=== PATIENT | male | born 1960 | race Caucasian/White ===

== ENCOUNTER → 2020-04-20 | Outpatient (CLI) | payer MEDICARE ==
[~2020-04-20] MED LIST: AMLODIPINE BES2.5 MG PO; ASPIRIN CHEWABL81 MG PO; ATORVASTATIN CA80 MG PO; CATAPRES 0.1MG0.1 MG PO; CILOSTAZOL50 MG PO; DITROPAN XL10 MG PO; FLOMAX 0.4 MG0.4 MG PO; GABAPENTIN800 MG PO; HUMALOG100 UNIT/3 SQ; HYDROCODON-ACE1 EAC2 PO; HYGROTON TAB 2525 MG PO; IMDUR ER TAB 3030 MG PO; INVANZ 1 GM VIAL1 GM IV; ISOSORBIDE MONO30 MG PO; KEFLEX CAP 500500 MG PO; LEVOFLOXACIN750 MG PO; LIDOCAINE PLUS120 GM TOP; LINZESS145 MCG PO; LISINOPRIL10 MG PO; NOVOLOG 10100 UNITS1 INJ; OXYCONTIN10 MG PO; POTASSIUM CHLO10 ME2 PO; PROBIOTIC1 EACH PO; PROSCAR 5 MG TAB5 MG PO; PROTONIX 20 MG20 MG PO; TIZANIDINE HCL4 MG PO; TOPROL XL25 MG PO; TRAZODONE HCL150 MG PO; TRULICITY1.5 MG/0.5 SQ; URECHOLINE50 MG PO; VANCOMYCIN1.25 GM/12 IV; VENLAFAXINE HCL75 M1 PO; WELLBUTRIN XL150 MG PO; XARELTO20 MG PO
== END ==
LOC: WCC 13:54
DX: E11.621 Type 2 diabetes mellitus with foot ulcer (principal); L03.115 Cellulitis of right lower limb; E11.42 Type 2 diabetes mellitus with diabetic polyneuropathy; I70.735 Atherosclerosis of other type of bypass graft(s) of the right leg with ulceration of other part of foot; L97.519 Non-pressure chronic ulcer of other part of right foot with unspecified severity; E11.610 Type 2 diabetes mellitus with diabetic neuropathic arthropathy; M86.671 Other chronic osteomyelitis, right ankle and foot; Z79.4 Long term (current) use of insulin
CPT/HCPCS: G0463

== ENCOUNTER 2020-08-11 10:18 | Inpatient (IN) | payer MEDICARE ==
[~2020-08-11] VITALS: Ht 185.4 cm; Wt 83.9 kg
[~2020-08-11 10:18] MED LIST changes: -AMLODIPINE BES2.5 MG PO; -ATORVASTATIN CA80 MG PO; -GABAPENTIN800 MG PO; -INVANZ 1 GM VIAL1 GM IV; -ISOSORBIDE MONO30 MG PO; -LIDOCAINE PLUS120 GM TOP; -LISINOPRIL10 MG PO; -NOVOLOG 10100 UNITS1 INJ; -OXYCONTIN10 MG PO; -PROSCAR 5 MG TAB5 MG PO; -TIZANIDINE HCL4 MG PO; -TOPROL XL25 MG PO; -VANCOMYCIN1.25 GM/12 IV; -VENLAFAXINE HCL75 M1 PO; -WELLBUTRIN XL150 MG PO
[2020-08-11] MEDS ORDERED: NOVOLOG 10100 UNITS1 INJ (10:32)
[2020-08-11] MEDS ORDERED: ATORVASTATIN CA80 MG PO (11:49)
[2020-08-11] MEDS ORDERED: LISINOPRIL10 MG PO (11:53)
[2020-08-11] MEDS ORDERED: TIZANIDINE HCL4 MG PO (11:54)
[2020-08-11] MEDS ORDERED: VENLAFAXINE HCL75 M1 PO (11:55)
[2020-08-11] MEDS ORDERED: GABAPENTIN800 MG PO (11:55)
[2020-08-11 14:12] LABS: HEMOGLOBIN 16.6 gm/dl (14.0-17.5); RED BLOOD COUNT 6.33 M/UL (4.20-5.50); WHITE BLOOD COUNT 7.5 K/UL (4.5-11.0)
[2020-08-11 14:33] LABS: BUN/CREATININE RATIO 13 (0-10)
[2020-08-11] MEDS ORDERED: ISOSORBIDE MONO30 MG PO (16:43)
[2020-08-11] MEDS ORDERED: WELLBUTRIN XL150 MG PO (16:44)
[2020-08-11] MEDS ORDERED: TOPROL XL25 MG PO (16:45)
[2020-08-11] MEDS ORDERED: LIDOCAINE PLUS120 GM TOP (16:46)
[2020-08-11] MEDS ORDERED: AMLODIPINE BES2.5 MG PO (16:46)
[2020-08-11] MEDS ORDERED: PROSCAR 5 MG TAB5 MG PO (16:46)
[2020-08-12 02:28] LABS: WHITE BLOOD COUNT 8.1 K/UL (4.5-11.0)
[2020-08-12 02:35] LABS: HEMOGLOBIN 13.2 gm/dl (14.0-17.5); RED BLOOD COUNT 5.2 M/UL (4.20-5.50)
[2020-08-12 02:47] LABS: BUN/CREATININE RATIO 13 (0-10)
[2020-08-13 03:55] LABS: HEMOGLOBIN 14.6 gm/dl (14.0-17.5); RED BLOOD COUNT 5.67 M/UL (4.20-5.50); WHITE BLOOD COUNT 9.5 K/UL (4.5-11.0)
[2020-08-13 04:32] LABS: BUN/CREATININE RATIO 12 (0-10)
[2020-08-13] MEDS ORDERED: OXYCONTIN10 MG PO (13:42)
[2020-08-13] MEDS ORDERED: VANCOMYCIN1.25 GM/12 IV (14:29)
[2020-08-14 04:27] LABS: RED BLOOD COUNT 5.11 M/UL (4.20-5.50); WHITE BLOOD COUNT 7.9 K/UL (4.5-11.0)
--- NOTE | 2020-08-14 10:05 | NUR ---
PATIENT MEDICALLY CLEARED FOR SURGERY PER DR. PARISI. NOTIFIED DR. PATTERSON
--- NOTE | 2020-08-14 15:15 | NUR ---
DR. PARISI AWARE OF PATIEN'S LOW POTASSIUM.
--- NOTE | 2020-08-14 15:17 | NUR ---
INFORMED BRENDA OR NURSE OF PATIENT'S LAST VITAL SIGNS AND B/P MEDS NOT GIVEN THIS MORNING AND STATED ITS OK. WILL TAKE CARE OF IT AT OR.
--- NOTE | 2020-08-14 19:04 | NUR ---
It was not known to me when patient arrived from [facility]. patient right foot with surgical dressing noted dry, clean and intact. patient was resting comfortably.
--- NOTE | 2020-08-14 19:09 | NUR ---
giving report to filippo -nurse when patient becomes verbally abusive. filippo informed the patient that he is not going outside to smoke at this time because he is still getting a surgical vitals. patient got more agitated and stated he is leaving anyway. reported this to dr. nieves and she stated that he is on his right mind and that he wanted to leave he can leave and let him sign ama. patient refused both iv antibiotics when offered by dyana-arabella
--- NOTE | 2020-08-14 19:16 | NUR ---
reported to dr. nieves patient being verbally abusive to me, patient change of mind that he is staying, antibiotics not given that is due this evening because patient refused to received, that morning b/p meds was not given this morning ( was reported this earlier), that picc line in placed, diet ordered.
[2020-08-17] MEDS ORDERED: INVANZ 1 GM VIAL1 GM IV ×2 (11:48→11:52)
== END 2020-08-17 15:57 | disposition home health service (06) | DRG 617 ==
LOC: ER1 10:18 → CDU 15:10 → M/S 15:10
PROVIDERS: Physician Assistant; Podiatrist Foot & Ankle Surgery; ADMIT Internal Medicine
PROC: 02HV33Z Insertion of Infusion Device into Superior Vena Cava, Percutaneous Approach (ICD-10-PCS; 2020-08-11)
PROC: 02HV33Z Insertion of Infusion Device into Superior Vena Cava, Percutaneous Approach (ICD-10-PCS; 2020-08-13)
PROC: 02PYX3Z Removal of Infusion Device from Great Vessel, External Approach (ICD-10-PCS; 2020-08-13)
PROC: 0HRMXK3 Replacement of Right Foot Skin with Nonautologous Tissue Substitute, Full Thickness, External Approach (ICD-10-PCS; 2020-08-14)
PROC: 0JBQ0ZZ Excision of Right Foot Subcutaneous Tissue and Fascia, Open Approach (ICD-10-PCS; 2020-08-14)
PROC: 0Y6M0ZF Detachment at Right Foot, Partial 5th Ray, Open Approach (ICD-10-PCS; principal; 2020-08-14 15:00)
DX: E11.69 Type 2 diabetes mellitus with other specified complication (principal); M86.671 Other chronic osteomyelitis, right ankle and foot; E87.1 Hypo-osmolality and hyponatremia; E87.2 Acidosis; L03.115 Cellulitis of right lower limb; Z20.822 Contact with and (suspected) exposure to COVID-19; I10 Essential (primary) hypertension; E87.6 Hypokalemia; M62.461 Contracture of muscle, right lower leg; E11.621 Type 2 diabetes mellitus with foot ulcer; E11.51 Type 2 diabetes mellitus with diabetic peripheral angiopathy without gangrene; I25.10 Atherosclerotic heart disease of native coronary artery without angina pectoris; N40.0 Benign prostatic hyperplasia without lower urinary tract symptoms; E78.5 Hyperlipidemia, unspecified; F17.210 Nicotine dependence, cigarettes, uncomplicated; E11.40 Type 2 diabetes mellitus with diabetic neuropathy, unspecified; L97.519 Non-pressure chronic ulcer of other part of right foot with unspecified severity; Z79.4 Long term (current) use of insulin; Z91.14 Patient's other noncompliance with medication regimen; Z86.73 Personal history of transient ischemic attack (TIA), and cerebral infarction without residual deficits; Z91.041 Radiographic dye allergy status
CPT/HCPCS: 36415; 71045; 73630; 73718; 80048; 80053; 80202; 82962; 83036; 83605; 84132; 85025; 85027; 87040; 87070; 87205; 93005; 94760; 96374; 99284; J0690; J1335; J1650; J2001; J2270; J2405; J2543; J2704; J3010; J3370; J7030; J7050; J7070; J7120; Q4133; U0002

== ENCOUNTER → 2020-09-14 | Outpatient (CLI) | payer MEDICARE ==
[~2020-09-14] MED LIST changes: +AMLODIPINE BES2.5 MG PO; +ATORVASTATIN CA80 MG PO; +GABAPENTIN800 MG PO; +INVANZ 1 GM VIAL1 GM IV; +ISOSORBIDE MONO30 MG PO; +LIDOCAINE PLUS120 GM TOP; +LISINOPRIL10 MG PO; +NOVOLOG 10100 UNITS1 INJ; +OXYCONTIN10 MG PO; +PROSCAR 5 MG TAB5 MG PO; +TIZANIDINE HCL4 MG PO; +TOPROL XL25 MG PO; +VANCOMYCIN1.25 GM/12 IV; +VENLAFAXINE HCL75 M1 PO; +WELLBUTRIN XL150 MG PO
== END ==
LOC: OPSV 07:54
DX: Z45.2 Encounter for adjustment and management of vascular access device (principal)
CPT/HCPCS: C1751

== ENCOUNTER 2020-12-29 13:27 | Emergency (ER) | payer MEDICARE ==
[2020-12-29 15:18] LABS: HEMOGLOBIN 10.3 gm/dl (14.0-17.5); RED BLOOD COUNT 4.26 M/UL (4.20-5.50); WHITE BLOOD COUNT 24.4 K/UL (4.5-11.0)
[2020-12-29 15:42] LABS: BUN/CREATININE RATIO 23 (0-10)
== END 2020-12-29 23:55 | disposition short-term general hospital (02) ==
LOC: ER1 13:27
PROVIDERS: Physician Assistant Medical
DX: A41.9 Sepsis, unspecified organism (principal); R65.20 Severe sepsis without septic shock; L89.159 Pressure ulcer of sacral region, unspecified stage; E78.5 Hyperlipidemia, unspecified; Z20.822 Contact with and (suspected) exposure to COVID-19; I25.2 Old myocardial infarction; J44.9 Chronic obstructive pulmonary disease, unspecified; I10 Essential (primary) hypertension; Z86.73 Personal history of transient ischemic attack (TIA), and cerebral infarction without residual deficits; E11.51 Type 2 diabetes mellitus with diabetic peripheral angiopathy without gangrene; Z91.041 Radiographic dye allergy status; F17.210 Nicotine dependence, cigarettes, uncomplicated
CPT/HCPCS: 71045; 80053; 83605; 84484; 85025; 85610; 85652; 85730; 86140; 87040; 93005; 96365; 96366; 96375; 99285; J1200; J1644; J2270; J2405; J2543; J2930; J3370; J7030; Q9967; U0002